=== PATIENT | female | born 1980 | race Caucasian/White ===

== ENCOUNTER → 2016-12-08 09:00 | Emergency (ER) | payer OTHER ==
--- NOTE | 2016-12-08 10:17 | ED ---
Throat Pain/Nasal Congestion - HPI Summary HPI Summary: 36 female presents to ED with complaints of sore throat that began ~ 3-4 days ago and has been worsening. Patient states she also has been very congested in her nose and sinuses. Admits to seasonal allergies that do worsen around this time of year. Admits to slight headache and sweating at night. Denies known fever/chills. Has not taken any medication. Has been exposed to multiple positive strep contacts. Throat is sharp and scratchy and is worse with swallowing. Is able to swallow and denies any trouble breathing. No SOB, or chest pain. Admits to some nausea that she related to swallowing mucus. Denies abdominal pain, vomiting. Denies PMHx. No other complaints at this time. - History of Current Complaint Chief Complaint: EDThroatPain Time Seen by Provider: 12/08/16 09:09 Hx Obtained From: Patient Onset/Duration: Sudden Onset, Lasting Days, Worse Since Severity: Moderate Associated Signs And Symptoms: Positive: Dysphagia, Sinus Discomfort, Nasal Discharge Cough: Nonproductive - intermittent, sparingly - Epiglottits Risk Factors Epiglottis Risk Factors: Negative - Allergies/Home Medications Allergies/Adverse Reactions: Allergies Allergy/AdvReac Type Severity Reaction Status Date / Time No Known Allergies Allergy Verified 12/08/16 10:35 PMH/Surg Hx/FS Hx/Imm Hx Endocrine/Hematology History: Denies: Hx Diabetes Cardiovascular History: Denies: Hx Hypertension Respiratory History: Denies: Hx Asthma - Surgical History Surgery Procedure, Year, and Place: none - Immunization History Immunizations Up to Date: Yes Infectious Disease History: No Infectious Disease History: Denies: Traveled Outside the [place] in Last 30 Days - Family History Known Family History: Positive: None - Social History Alcohol Use: None Substance Use Type: Reports: None Smoking Status (MU): Former Smoker Review of Systems Constitutional: Negative Positive: Sore Throat, Nasal Discharge, Other - sinus pressure Cardiovascular: Negative Positive: Cough - non productive, intermittent Positive: Nausea - resolved, from mucus Genitourinary: Negative Musculoskeletal: Negative Positive: Headache - mild All Other Systems Reviewed And Are Negative: Yes Physical Exam Triage Information Reviewed: Yes Vital Signs On Initial Exam: Initial Vitals Temp Pulse Resp BP Pulse Ox 98.7 F 72 17 102/24 96 12/08/16 09:05 12/08/16 09:05 12/08/16 09:05 12/08/16 09:05 12/08/16 09:05 Vital Signs Reviewed: Yes Appearance: Positive: Well-Appearing, No Pain Distress, Well-Nourished Skin: Positive: Warm, Skin Color Reflects Adequate Perfusion, Dry. Negative: Cold, Numb, Cyanosis @, Pale, Erythema @ Head/Face: Positive: Normal Head/Face Inspection Eyes: Positive: EOMI, LITZY, Conjunctiva Clear ENT: Positive: Normal ENT inspection, Hearing grossly normal, Pharyngeal erythema, TMs normal, Tonsillar swelling - mild, Other - patent airway. Negative: Tonsillar exudate, Trismus, Muffled/hoarse voice Dental: Positive: Cervical Lymphadenopathy - tonsillar b/l Neck: Positive: Supple, Nontender Respiratory/Lung Sounds: Positive: Clear to Auscultation, Breath Sounds Present. Negative: Decreased Breath Sounds, Rales, Rhonchi, Wheezes Cardiovascular: Positive: Normal, RRR, Pulses are Symmetrical in both Upper and Lower Extremities. Negative: Murmur, Rub Abdomen Description: Positive: Nontender, Soft Bowel Sounds: Positive: Present Musculoskeletal: Positive: Normal, Strength/ROM Intact Neurological: Positive: Normal, Sensory/Motor Intact, Alert, Oriented to Person Place, Time, Normal Gait Psychiatric: Positive: Affect/Mood Appropriate Diagnostics - Vital Signs Vital Signs Temp Pulse Resp BP Pulse Ox 12/08/16 09:05 98.7 F 72 17 102/24 96 - Laboratory Lab Results: Lab Results 12/08/16 Range/Units 09:34 Group A Strep Rapid Negative (Negative) Lab Statement: Any lab studies that have been ordered have been reviewed, and results considered in the medical decision making process. EENT Course/Dx - Course Course Of Treatment: rapid strep obtained and negative. appears to be suffering from URI and/or seasonal allergies. possible sinus infection that worsens and also had positive strep contacts. treat with symptomatic measures, flonase, fluids, salt water, tea, antihistamine and otc cold medicines. hot compresses over sinuses and hot showers. if symptoms do not improve in 5-7 days take antibiotic prescribed. patient does not have pcp so given script in case symptoms worse, new symptoms develop or do not improve. aware of worsening signs and symptoms and when to take antibiotic. patient understands and compliant. agrees with plan. follow up and try and get PCP. - Differential Diagnoses Differential Diagnoses: Allergic Rhinitis, Pharyngitis, Sinusitis, Tonsilitis, URI/Bronchitis - Diagnoses Provider Diagnoses: Upper respiratory infection Discharge - Discharge Plan Condition: Stable Disposition: HOME Prescriptions: Amoxicillin/Clavulanate TAB* [Augmentin TAB 875*] 875 mg PO BID #20 tab Fluticasone NASAL SPRAY 50MCG* [Flonase NASAL SPRAY 50MCG*] 2 spray BOTH NARES DAILY #1 btl Patient Education Materials: Sinusitis (ED), Upper Respiratory Infection (ED) Referrals: [facility] [place] [facility] REFERRAL [Outside] No Primary Care Phys,NOPCP [Primary Care Provider] - Additional Instructions: Try symptomatic relief for the next 4-5 days to see if symptoms improve as it is likely viral. Use prescribed flonase nasal spray. Recommend taking anti-histamine, such as zyrtec or claritin, over the counter for the next 7 days to help with mucus and for seasonal allergies. Drink teas, gargle with salt water. Use chloraspetic spray sold over the counter to help soothe sore throat. Rest and drink plenty of fluids. ibuprofen or tylenol for fever and discomfort. Warm compresses over sinuses and hot showers to breath in steam and loosen congestion. If symptoms worsen (worsening sore throat, fever,, congestion or new symptoms) or do not improve in 5-7 days take prescribed antibiotic, as discussed. If antibiotics taken- take entire dose, even if symptoms improve and recommend eating malaysian yogurt or taking probiotic pills in between doses. Follow up with a primary, number to obtain one is attached. Return if symptoms do not improve in 2-3 weeks.
[2016-12-08 10:32] VITALS: BP 102/61
== END | disposition home or self-care (01) ==
LOC: ED 09:00
DX: J06.9 Acute upper respiratory infection, unspecified (principal); R13.10 Dysphagia, unspecified; J02.9 Acute pharyngitis, unspecified; R05 Cough; R11.0 Nausea; R51 Headache; Z87.891 Personal history of nicotine dependence
CPT/HCPCS: 87651; 99281

== ENCOUNTER 2019-06-20 09:40 | Emergency (ER) | payer OTHER ==
[2019-06-20 11:09] VITALS: BP 0/0
--- NOTE | 2019-06-20 11:12 | UC ---
Throat Pain/Nasal Timmy HPI - HPI Summary HPI Summary: The patient is a 38-year-old female that presents here with a 24-hour history of fever and sore throat. She denies any URI symptoms. She denies any chest pain or shortness of breath. She denies any nausea vomiting or diarrhea. She has mild myalgias. She has mild headache. 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 Last year she was admitted to the hospital in [place] for sepsis from strep throat. She states she was admitted on IV antibiotics for 4 days. She is not sure if it was group A beta-hemolytic strep. She has been able to tolerate both solids and liquids. - History of Current Complaint Stated Complaint: SORE THROAT Time Seen by Provider: 06/20/19 11:03 Hx Obtained From: Patient Onset/Duration: Gradual Onset, Lasting Hours Severity: Moderate Pain Intensity: 4 Pain Scale Used: 0-10 Numeric Cough: Nonproductive Associated Signs & Symptoms: Positive: Negative - Epiglottits Risk Factors Epiglottis Risk Factors: Negative - Allergies/Home Medications Allergies/Adverse Reactions: Allergies Allergy/AdvReac Type Severity Reaction Status Date / Time No Known Allergies Allergy Verified 06/20/19 11:05 Home Medications: Home Medications NK [No Home Medications Reported] 06/20/19 [History Confirmed 06/20/19] PMH/Surg Hx/FS Hx/Imm Hx Previously Healthy: Yes - Surgical History Surgery Procedure, Year, and Place: none - Family History Known Family History: Positive: Hypertension - Social History Alcohol Use: None Substance Use Type: None Smoking Status (MU): Former Smoker Review of Systems All Other Systems Reviewed And Are Negative: Yes Constitutional: Positive: Fever, Chills Skin: Positive: Negative Eyes: Positive: Negative ENT: Positive: Sore Throat Respiratory: Positive: Negative Cardiovascular: Positive: Negative Gastrointestinal: Positive: Negative Genitourinary: Positive: Negative Motor: Positive: Negative Neurovascular: Positive: Negative Musculoskeletal: Positive: Negative Neurological/Mental Status: Positive: Negative Psychological: Positive: Negative Physical Exam Triage Information Reviewed: Yes Appearance: Well-Appearing, No Pain Distress, Well-Nourished Vital Signs Reviewed: Yes Eyes: Positive: Conjunctiva Clear ENT: Positive: Hearing grossly normal, Nasal congestion, Nasal drainage, Uvula midline. Negative: Tonsillar swelling, Tonsillar exudate, Hoarse voice Dental Exam: Normal Neck: Positive: Supple, Nontender, No Lymphadenopathy Respiratory: Positive: Lungs clear, Normal breath sounds, No respiratory distress Cardiovascular: Positive: RRR, No Murmur Bowel Sounds: Positive: Present Musculoskeletal: Positive: ROM Intact, No Edema Neurological: Positive: Alert Psychological Exam: Normal Skin Exam: Normal Throat Pain/Nasal Course/Dx - Differential Dx/Diagnosis Provider Diagnosis: Pharyngitis Discharge ED - Sign-Out/Discharge Documenting (check all that apply): Patient Departure All imaging exams completed and their final reports reviewed: No Studies - Discharge Plan Condition: Stable Disposition: HOME Patient Education Materials: Pharyngitis (ED) Forms: COVID-19 Tested & Isolation Referrals: No Primary Care Phys,NOPCP [Primary Care Provider] - Additional Instructions: throat culture pending covid testing pending rapid strep and influenza pending recheck for new or worsening symptoms - Billing Disposition and Condition Condition: STABLE Disposition: Home
[2019-06-20] MEDS ORDERED: Acetaminophen TAB* 325 MG PO ONE (11:38)
[2019-06-20 12:17] LABS: Influenza A Molecular Negative (Negative); Influenza B Molecular Negative (Negative)
== END 2019-06-20 12:52 | disposition home or self-care (01) ==
LOC: UCEAST 09:40
DX: J02.9 Acute pharyngitis, unspecified (principal); R50.9 Fever, unspecified; Z20.828 Contact with and (suspected) exposure to other viral communicable diseases; Z87.891 Personal history of nicotine dependence
CPT/HCPCS: 87070; 87651; 99212; A9270-GY; G0463; U0002